=== PATIENT | male | born 1945 ===

== ENCOUNTER → 2019-09-25 06:00 | Outpatient (REF) | payer MEDICARE, OTHER, SELFPAY | LOC: ANHLAB 06:00 | PROVIDERS: Visit Provider Nurse Practitioner Family | DX: C44.41 Basal cell carcinoma of skin of scalp and neck (principal) | CPT/HCPCS: 88305; 88331 ==

== ENCOUNTER → 2020-06-01 08:05 | Outpatient (REF) | payer MEDICARE, OTHER, SELFPAY | LOC: ANHLAB 08:05 | PROVIDERS: Visit Provider Nurse Practitioner | DX: C44.319 Basal cell carcinoma of skin of other parts of face (principal) | CPT/HCPCS: 88305; 88331 ==

== ENCOUNTER → 2020-12-14 10:30 | Outpatient (REF) | payer MEDICARE, OTHER, SELFPAY | LOC: ANHLAB 10:30 | PROVIDERS: Visit Provider Nurse Practitioner | DX: C44.311 Basal cell carcinoma of skin of nose (principal) | CPT/HCPCS: 88305; 88331 ==